=== PATIENT | male | born 1930 | race Caucasian/White ===

== ENCOUNTER 2016-04-26 18:12 | Emergency (ER) | payer OTHER, MEDICARE ==
[~2016-04-26] VITALS: Ht 172.7 cm; Wt 82.4 kg
[~2016-04-26 18:12] MED LIST: ASPIR 8181 M1 PO; CARVEDILOL12.5 MG PO; CARVEDILOL25 MG PO; CLEOCIN300 MG PO; COREG25 M1 PO; DAILY VALUE1 EACH PO; ENDOCET 5-3251 EACH PO; FISH OIL + D31 EACH PO; FISH OIL 1,0001 EACH PO; FLORASTOR250 MG PO; FOLIC ACID1 MG PO; KEFLEX500 MG PO; NIACIN1000 MG PO; NIASPAN1000 MG PO; OxyCONTIN PO; PRAVACHOL40 MG PO; PRAVACHOL80 MG PO; PREDNISONE10 M1 PO; SERTRALINE HCL50 MG PO; TRIAMTERENE-HC1 EAC1 PO; TRICOR145 MG PO; TYLOX 5-500 CA1 EACH PO; ZINC50 M1 PO; ZOLOFT50 MG PO
[2016-04-26 19:24] LABS: EOSINOPHIL (%) 7.1 % (0-5); EOSINOPHIL COUNT 0.3 K/uL (0-0.3); HEMATOCRIT 41.1 % (38.0-50.0); IMMATURE GRANULOCYTE (%) 0.2 % (0.0-0.7); IMMATURE GRANULOCYTE COUNT 0.1 K/uL; LYMPHOCYTE COUNT 1.3 K/uL (1.0-2.8); MCH 30.2 PG (29.0-34.0); MCHC 33.1 G/DL (30.0-36.0); MCV 91.3 FL (86-99); MEAN PLAT.VOLUME 11.2 uM^3 (9.0-12.4); MONOCYTE (%) 11.8 % (3-12); MONOCYTE COUNT 0.6 K/uL (0-0.8); NEUTROPHIL (%) 52.6 % (45-76); NEUTROPHIL COUNT 2.5 K/uL (1.8-6.4); PLATELET COUNT 148 K/uL (156-360); RBC DIS.WIDTH-CV 12.8 % (11.8-14.6); RBC DIS.WIDTH-SD 41.6 % (39-53); WHITE BLOOD COUNT 4.7 K/uL (4.1-10.2)
[2016-04-26] MEDS ORDERED: CYANOCOBALAM1000 MCG PO (19:28)
[2016-04-26] MEDS ORDERED: AUGMENTIN875 MG PO (19:30)
[2016-04-26] MEDS ORDERED: BENZONATATE100 MG PO (19:31)
[2016-04-26 19:37] LABS: CHLORIDE 109 mEq/L (99-109); POTASSIUM 4.4 mEq/L (3.7-5.4); SODIUM 140 mEq/L (136-147)
[2016-04-26 19:39] LABS: GLUCOSE 103 mg/dL (70-99)
[2016-04-26 19:40] LABS: ANION GAP 9 MEQ/L (2-14)
[2016-04-26 19:43] LABS: GFR ESTIMATE (CALCULATED) > 59 mL/min/
[2016-04-26 19:44] LABS: UREA NITROGEN (BUN) 23 mg/dL (9-23)
[2016-04-26 19:53] LABS: TROP-I INTERPRETATION NEGATIVE; TROPONIN-I < 0.01 ng/mL (0.0-0.30)
[2016-04-26] MEDS ORDERED: LEVAQUIN500 MG PO (20:16)
[2016-04-26] MEDS ORDERED: PREDNISONE10 MG PO (20:16)
[2016-04-26 20:54] VITALS: BP 155/55
== END 2016-04-26 21:01 | disposition home or self-care (01) ==
LOC: EME 18:12
PROVIDERS: Emergency Medicine
DX: J44.9 Chronic obstructive pulmonary disease, unspecified (principal); F17.290 Nicotine dependence, other tobacco product, uncomplicated; I25.2 Old myocardial infarction; Z95.1 Presence of aortocoronary bypass graft
CPT/HCPCS: 71010; 80048; 83880; 84484; 85025; 93005; 94640; 99281; 99285; J2930

== ENCOUNTER 2017-04-24 14:08 | Observation (INO) | payer OTHER, MEDICARE ==
[~2017-04-24] VITALS: Ht 172.7 cm; Wt 94.7 kg
[~2017-04-24 14:08] MED LIST changes: +AUGMENTIN875 MG PO; +BENZONATATE100 MG PO; +CYANOCOBALAM1000 MCG PO; +LEVAQUIN500 MG PO; +PREDNISONE10 MG PO
[2017-04-24 15:15] LABS: HEMATOCRIT 42.7 % (38.0-50.0); HEMOGLOBIN 14.4 G/DL (12.5-16.6); MCH 31.4 PG (29.0-34.0); MCHC 33.7 G/DL (30.0-36.0); MCV 93.2 FL (86-99); PLATELET COUNT 210 K/uL (156-360); RBC DIS.WIDTH-SD 41.1 % (39-53); RED BLOOD COUNT 4.58 M/uL (4.00-5.50)
[2017-04-24 15:23] LABS: ALBUMIN 4.2 g/dL (3.2-4.8)
[2017-04-24 15:24] LABS: CHLORIDE 108 mEq/L (99-109); POTASSIUM 4.2 mEq/L (3.7-5.4); SODIUM 141 mEq/L (136-147)
[2017-04-24 15:26] LABS: GLUCOSE 94 mg/dL (70-99); TOTAL PROTEIN 7.2 g/dL (6.4-8.3)
[2017-04-24 15:28] LABS: TROP-I INTERPRETATION NEGATIVE; TROPONIN-I < 0.01 ng/mL (0.0-0.30)
[2017-04-24 15:28] LABS: TOTAL BILIRUBIN 0.5 mg/dL (0.0-1.0)
[2017-04-24 15:29] LABS: ALKALINE PHOSPHATASE 44 IU/L (3-129)
[2017-04-24 15:30] LABS: CREATININE 1.1 mg/dL (0.6-1.3); GFR ESTIMATE (CALCULATED) > 59 mL/min/ (58.99-99999)
[2017-04-24 15:31] LABS: AST (GOT) 22 IU/L (2-34); UREA NITROGEN (BUN) 20 mg/dL (9-23)
[2017-04-24 15:32] LABS: ALT (GPT) 12 IU/L (3-49)
[2017-04-24] MEDS ORDERED: OMEGA 3-6-9 CO400 MG PO (17:20)
[2017-04-24] MEDS ORDERED: FENOFIBRATE160 M1 PO (17:20)
[2017-04-24] MEDS ORDERED: DAILY VALUE1 EACH PO (17:21)
[2017-04-24] MEDS ORDERED: NITROSTAT0.4 MG SL (17:21)
[2017-04-24 18:13] LABS: TROP-I INTERPRETATION NEGATIVE; TROPONIN-I 0.03 ng/mL (0.0-0.30)
[2017-04-24 20:19] VITALS: BP 136/63
[2017-04-24 21:16] LABS: INTER. NORMALIZED RATIO 1.1; TROP-I INTERPRETATION NEGATIVE; TROPONIN-I < 0.01 ng/mL (0.0-0.30)
[2017-04-24 21:19] LABS: PTT 29.3 SEC (25-37)
[2017-04-24 23:33] VITALS: BP 83/42
[2017-04-25 03:12] VITALS: BP 96/52
[2017-04-25 03:26] LABS: TROP-I INTERPRETATION NEGATIVE; TROPONIN-I < 0.01 ng/mL (0.0-0.30)
[2017-04-25 03:30] LABS: HDL CHOLESTEROL 22 MG/DL (Desirable>=40); LDL CHOLESTEROL 75 mg/dL (Desirable<100); NON-HDL CHOLESTEROL 114 mg/dL (Desirable<160); TOTAL CHOLESTEROL 136 mg/dL (Desirable<200); TRIGLYCERIDES 196 MG/DL (Normal: <150)
[2017-04-25 07:49] VITALS: BP 106/57
[2017-04-25 12:13] VITALS: BP 105/58
== END 2017-04-25 12:44 | disposition home or self-care (01) ==
LOC: EME 14:08 → EDOF 19:17 → ENRESERV 19:21 → 5WEST 20:20 → ENPENDDIS 04-25 → 5WEST 04-25 12:44
PROVIDERS: Physician Assistant; Physician Assistant Medical
DX: R07.9 Chest pain, unspecified (principal); I10 Essential (primary) hypertension; I25.119 Atherosclerotic heart disease of native coronary artery with unspecified angina pectoris; E78.5 Hyperlipidemia, unspecified; Z95.1 Presence of aortocoronary bypass graft; R94.31 Abnormal electrocardiogram [ECG] [EKG]; I45.10 Unspecified right bundle-branch block; I44.0 Atrioventricular block, first degree; I25.2 Old myocardial infarction; J44.9 Chronic obstructive pulmonary disease, unspecified; Z86.19 Personal history of other infectious and parasitic diseases; Z85.51 Personal history of malignant neoplasm of bladder; Z87.891 Personal history of nicotine dependence; E66.9 Obesity, unspecified; Z68.31 Body mass index [BMI] 31.0-31.9, adult; Z79.82 Long term (current) use of aspirin; Z80.9 Family history of malignant neoplasm, unspecified
CPT/HCPCS: 71046; 80053; 80061; 84484; 85027; 85610; 85730; 93005; 99281; 99285; G0378

== ENCOUNTER 2017-05-30 12:07 | Observation (INO) | payer OTHER, MEDICARE ==
[~2017-05-30] VITALS: Ht 172.7 cm; Wt 84.0 kg
[~2017-05-30 12:07] MED LIST changes: +FENOFIBRATE160 M1 PO; +NITROSTAT0.4 MG SL; +OMEGA 3-6-9 CO400 MG PO
[2017-05-30 13:01] LABS: BASOPHIL (%) 0.9 % (0-1); BASOPHIL COUNT 0.1 K/uL (0-0.1); EOSINOPHIL (%) 0 % (0-5); HEMATOCRIT 40.4 % (38.0-50.0); HEMOGLOBIN 13.6 G/DL (12.5-16.6); IMMATURE GRANULOCYTE (%) 0.5 % (0.0-0.7); LYMPHOCYTE (%) 23.5 % (15-42); LYMPHOCYTE COUNT 1.3 K/uL (1.0-2.8); MCH 31.4 PG (29.0-34.0); MCHC 33.7 G/DL (30.0-36.0); MCV 93.3 FL (86-99); MONOCYTE (%) 10.4 % (3-12); MONOCYTE COUNT 0.6 K/uL (0-0.8); NEUTROPHIL (%) 64.7 % (45-76); NEUTROPHIL COUNT 3.7 K/uL (1.8-6.4); PLATELET COUNT 201 K/uL (156-360); RBC DIS.WIDTH-CV 12.4 % (11.8-14.6); RBC DIS.WIDTH-SD 42.6 % (39-53); RED BLOOD COUNT 4.33 M/uL (4.00-5.50); WHITE BLOOD COUNT 5.7 K/uL (4.1-10.2)
[2017-05-30 13:09] LABS: CHLORIDE 107 mEq/L (99-109); POTASSIUM 4.2 mEq/L (3.7-5.4); SODIUM 139 mEq/L (136-147)
[2017-05-30 13:11] LABS: GLUCOSE 100 mg/dL (70-99)
[2017-05-30 13:15] LABS: CREATININE 1.1 mg/dL (0.6-1.3); GFR ESTIMATE (CALCULATED) > 59 mL/min/ (58.99-99999); PTT 30.3 SEC (25-37)
[2017-05-30 13:16] LABS: UREA NITROGEN (BUN) 29 mg/dL (9-23)
[2017-05-30 13:22] LABS: TROP-I INTERPRETATION NEGATIVE; TROPONIN-I < 0.01 ng/mL (0.0-0.30)
[2017-05-30 18:30] VITALS: BP 117/56
[2017-05-30 19:18] LABS: TROP-I INTERPRETATION NEGATIVE; TROPONIN-I 0.01 ng/mL (0.0-0.30)
[2017-05-30 20:20] VITALS: BP 109/56
[2017-05-31 00:11] VITALS: BP 144/71
[2017-05-31 04:14] VITALS: BP 128/64
[2017-05-31 06:57] LABS: HEMATOCRIT 39.7 % (38.0-50.0); HEMOGLOBIN 13.1 G/DL (12.5-16.6); MCH 31.3 PG (29.0-34.0); MCV 94.7 FL (86-99); PLATELET COUNT 202 K/uL (156-360); RBC DIS.WIDTH-CV 12.5 % (11.8-14.6); RBC DIS.WIDTH-SD 43.6 % (39-53); RED BLOOD COUNT 4.19 M/uL (4.00-5.50); WHITE BLOOD COUNT 6.1 K/uL (4.1-10.2)
[2017-05-31 07:16] LABS: TROP-I INTERPRETATION NEGATIVE; TROPONIN-I 0.01 ng/mL (0.0-0.30)
[2017-05-31 07:27] LABS: CHLORIDE 105 MEQ/L (99-109); CREATININE 1.2 MG/DL (0.6-1.3); GFR ESTIMATE (CALCULATED) > 59 mL/min/ (58.99-99999); GLUCOSE 89 mg/dL (70-99); SODIUM 139 MEQ/L (136-147); UREA NITROGEN (BUN) 28 mg/dL (9-23)
[2017-05-31 07:28] LABS: POTASSIUM 5.2 MEQ/L (3.7-5.4)
[2017-05-31 07:58] VITALS: BP 150/70
[2017-05-31] MEDS ORDERED: IMDUR30 MG PO (11:14)
== END 2017-05-31 11:27 | disposition home or self-care (01) ==
LOC: EME 12:07 → EDOF 16:25 → ENRESERV 16:29 → 5WEST 18:02
PROVIDERS: Emergency Medicine; Hospitalist
DX: R07.89 Other chest pain (principal); I10 Essential (primary) hypertension; I25.10 Atherosclerotic heart disease of native coronary artery without angina pectoris; I25.2 Old myocardial infarction; Z95.1 Presence of aortocoronary bypass graft; E78.5 Hyperlipidemia, unspecified; I65.23 Occlusion and stenosis of bilateral carotid arteries; F17.290 Nicotine dependence, other tobacco product, uncomplicated; Z79.82 Long term (current) use of aspirin
CPT/HCPCS: 71045; 80048; 84484; 85025; 85027; 85610; 85730; 93005; 99281; 99285; G0378; J2270